=== PATIENT | female | born 2000 | race Caucasian/White ===

== ENCOUNTER 2022-05-24 21:24 | Emergency (ER) | payer OTHER ==
[~2022-05-24] VITALS: Ht 157.5 cm; Wt 55.5 kg
[2022-05-24] MEDS ORDERED: ADVIL LIQUI-GE200 M1 PO (21:51)
[2022-05-25] MEDS ORDERED: ZOFRAN ODT4 MG PO (00:04)
[2022-05-25 00:13] VITALS: BP 111/71
== END 2022-05-25 00:12 | disposition home or self-care (01) ==
LOC: EDBD 21:24 → ED 21:24
DX: R11.2 Nausea with vomiting, unspecified (principal); Z28.310 Unvaccinated for COVID-19
CPT/HCPCS: J7030